=== PATIENT | male | born 1990 | race Caucasian/White ===

== ENCOUNTER 2023-01-30 18:19 | Emergency (ER) | payer OTHER, SELFPAY ==
--- NOTE | ~2023-01-30 | CT_ITS ---
EXAM: CT scan of the head and cervical spine. INDICATION: Reason for Exam pain s/p fall TECHNIQUE: A noncontrast CT scan was performed from the skull base to the vertex. A noncontrast CT scan of the cervical spine was performed from the base of the skull through T1 at 2.5 mm and 1.25 mm collimation. Coronal and sagittal reformats were obtained at the acquisition workstation. This CT examination was performed using dose optimization techniques as appropriate, variously including the following: *Automated exposure control *Adjustment of mA and/or kV according to patient size (this includes techniques or standardized protocols for targeted exams where dose is matched to indication/reason for exam; i.e. extremities or head) *Use of iterative reconstruction technique DLP: 1141 mGy-cm COMPARISON: None FINDINGS: Head: There is no evidence of acute intracranial hemorrhage or territorial infarction. Parker-white matter differentiation is preserved. No abnormal mass effect or midline shift. No extra-axial fluid collections. No abnormal attenuation is demonstrated within the brain parenchyma. Scattered periventricular and deep white matter hypodensities consistent with microangiopathy. The ventricles and sulcal spaces are proportional without hydrocephalus. Proportional prominence of the ventricles and sulcal spaces. No acute osseous or soft tissue abnormalities. The mastoid air cells and visualized portions of the paranasal sinuses are well aerated. Cervical Spine: The atlantooccipital and atlantoaxial articulations remain well aligned. Straightening of the normal cervical lordosis. Otherwise, there is anatomic alignment of the vertebral bodies and posterior elements. No evidence of acute fracture or subluxation. Minor spurring and early degenerative disc space narrowing C6-C7. Minimal spurring C6-C7.. There is no prevertebral soft tissue swelling. The thyroid gland and remaining cervical soft tissues are normal in appearance. The lung apices demonstrate no abnormalities. CT/CT cervical spine wo IV con IMPRESSION: No acute intracranial pathology. No fracture subluxation cervical spine.
[2023-01-30 18:47] VITALS: BP 132/90; PULSE 89; RESP 16; TEMP 36.8; O2SAT 99; BMI 26.6
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
[2023-01-30 19:47] VITALS: BP 107/60; PULSE 124; RESP 16; TEMP 36.8; O2SAT 98
[2023-01-30 23:58] VITALS: BP 97/54; PULSE 105; RESP 15; O2SAT 95
== END 2023-01-31 00:46 | disposition home or self-care (01) ==
PROVIDERS: Emergency Provider Internal Medicine
DX: S01.91XA Laceration without foreign body of unspecified part of head, initial encounter (principal); S01.311A Laceration without foreign body of right ear, initial encounter; R51.9 Headache, unspecified; M54.2 Cervicalgia; Y28.9XXA Contact with unspecified sharp object, undetermined intent, initial encounter; Y93.9 Activity, unspecified; Y92.9 Unspecified place or not applicable; Y99.9 Unspecified external cause status
CPT/HCPCS: 12001; 12011; 70450; 72125; 99284

== ENCOUNTER 2023-02-17 23:49 | Emergency (ER) | payer OTHER, SELFPAY ==
--- NOTE | ~2023-02-17 | CT_ITS ---
EXAMINATION: CT HEAD WITHOUT CONTRAST CLINICAL INFORMATION: Altered mental status COMPARISON: 01/30/2023 TECHNIQUE: Contiguous axial imaging was performed from the skull base to vertex without intravenous administration of contrast. This CT examination was performed using dose optimization techniques as appropriate, variously including the following: *Automated exposure control *Adjustment of mA and/or kV according to patient size (this includes techniques or standardized protocols for targeted exams where dose is matched to indication/reason for exam; i.e. extremities or head) *Use of iterative reconstruction technique DLP: 685 mGy-cm FINDINGS: There is no evidence of acute intracranial hemorrhage or territorial infarction. No abnormal mass effect or midline shift is seen. Parker to white matter differentiation is well preserved. No extra-axial fluid collections are identified. No hydrocephalus. No significant volume loss. There is no abnormal attenuation within the brain parenchyma. No acute osseous or soft tissue abnormality. The mastoid air cells and visualized portions of the paranasal sinuses are well aerated. CT/CT head/brain wo IV con IMPRESSION: No acute intracranial pathology.
[2023-02-17 23:54] VITALS: BP 115/49; BP 137/78; PULSE 110; PULSE 112; RESP 20; O2SAT 94; O2SAT 96; BMI 20.8
[2023-02-18] VITALS (19 sets, daily range): BP systolic 88–122; BP diastolic 42–80; PULSE 76–96; RESP 14–22; TEMP 36.1–36.6; O2SAT 90–100
--- NOTE | 2023-02-18 | ECG_ITS ---
Test Reason : repeat Blood Pressure : / mmHG Vent. Rate : 081 BPM Atrial Rate : 081 BPM P-R Int : 144 ms QRS Dur : 100 ms QT Int : 378 ms P-R-T Axes : 073 084 029 degrees QTc Int : 439 ms Normal sinus rhythm Normal ECG When compared with ECG of 18-FEB-2023 00:25, T wave inversion no longer evident in Inferior leads Referred By: Ewa Leblanc Electronically Signed By:Jamil Clark
--- NOTE | 2023-02-18 | ECG_ITS ---
Test Reason : OD Blood Pressure : / mmHG Vent. Rate : 105 BPM Atrial Rate : 105 BPM P-R Int : 132 ms QRS Dur : 088 ms QT Int : 334 ms P-R-T Axes : 064 071 -06 degrees QTc Int : 441 ms Sinus tachycardia T wave abnormality, consider inferior ischemia Abnormal ECG No previous ECGs available Referred By: Ewa Leblanc Electronically Signed By:Jamil Clark
--- NOTE | 2023-02-18 00:02 | PC.NURSE ---
Security at bedside for changeover. Belongings secured in decon.
[2023-02-18 00:40] LABS: MANUAL DIFF FLAG NO
[2023-02-18 00:41] LABS: Basophils Absolute Auto 0.1 X10*3/uL (0.0-0.2); Basophils Percent Auto 0.6 % (0-2); Eosinophils Absolute Auto 0.4 X10*3/uL (0.0-0.4); Eosinophils Percent Auto 3.6 % (0-4); Hematocrit 49.7 % (42.0-52.0); Hemoglobin 17.2 g/dl (14.0-18.0); Imm Gran Abs Auto 0.04 X10*3/uL (0.00-0.03); Imm Gran Pct Auto 0.4 % (0.0-0.4); Lymphocytes Percent Auto 31.2 % (20-40); Mean Corpuscular HGB Conc 34.6 g/dl (31.0-36.0); Mean Corpuscular Hemoglobin 35.1 pg (27.0-33.0); Mean Corpuscular Volume 101.4 fL (80.0-98.0); Mean Platelet Volume 11.8 fL (9.4-12.4); Monocytes Absolute Auto 0.6 X10*3/uL (0.1-1.2); Monocytes Percent Auto 6.5 % (2-11); Neutrophils Absolute Auto 5.6 x10*3/uL (2.0-8.3); Neutrophils Percent Auto 57.7 % (45-73); Platelet Count 258 X10*3/uL (160-400); White Blood Count 9.7 X10*3/uL (4.8-10.8)
--- NOTE | 2023-02-18 00:56 | ED.GENADULT ---
HPI - General Adult General Chief complaint: ETOH/Substance Use Stated complaint: OVERDOSE Time Seen by Provider: 02/17/23 23:55 Source: patient, EMS and motor vehicle parts interpreter Mode of arrival: EMS History of Present Illness HPI narrative: EMS states that patient was found outside of [place], unresponsive, breathing at 4-6 times a minute. EMS administered 4 mg of nasal Narcan and states that patient immediately came to. Patient adamantly denies any use of drugs and states that he has had approximately 6-7 nips today and is typically located outside of [place] due to his status of being homeless. Patient states that he dozed off and then the next thing he knew he woke up and there were a bunch of people around him. Patient wants to know how he is going to get back to [place]. He denies any acute complaints at this time. Related Data Allergies Allergy/AdvReac Type Severity Reaction Status Date / Time No Known Allergies Allergy Verified 02/17/23 23:58 Review of Systems Review of Systems: Pertinent positives and negatives as stated in HPI PMFSH Past Medical History Source: nursing notes reviewed Social History Social History Alcohol intake: current Alcohol intake frequency: 3 or more drinks per day Alcohol type: hard liquor Smoked in Last 30 Days: No Use of substances other than those prescribed or required for medical reasons: No Advance Directives: No Advance Directives Information Provided: Yes Physical Exam ED Vital Signs: Vital Signs - 24 hr 02/17/23 23:54 02/18/23 00:03 02/18/23 01:17 Temperature 97.8 F Pulse Rate 112 H 88 Respiratory Rate 20 16 Blood Pressure 115/49 L 111/77 Pulse Oximetry 96 90 L Oxygen Delivery Method Room Air Room Air Oxygen Flow Rate 02/18/23 01:18 Temperature Pulse Rate Respiratory Rate Blood Pressure Pulse Oximetry 97 Oxygen Delivery Method Nasal Cannula Oxygen Flow Rate 2 BMI result Body Mass Index 20.8 VITAL SIGNS: Reviewed. GENERAL: Well developed, well nourished, in no acute distress, smells of alcohol. HEAD: Normocephalic/atraumatic EYES: PERRLA, EOMI LUNGS: Normal breath sounds. No adventitious sounds or accessory muscle use. SpO2<96> CARDIOVASCULAR: Regular rate and rhythm without noted murmurs, ABDOMEN: Soft, non-tender, non-distended with bowel sounds. MUSCULOSKELETAL: No tenderness, deformities, or effusions noted on gross inspection; NO RIGHT LOWER EXTREMITY AT BASELINE. EXTREMITIES: No cyanosis, clubbing or edema. SKIN: Inspection of the skin reveals no rashes NEUROLOGIC: Alert and oriented x 3. Strength and sensation to light touch were grossly intact x 4. Medications Administered Discontinued Medications Generic Name Dose Route Start Last Admin Trade Name Freq PRN Reason Stop Dose Admin Naloxone HCl 4 mg 02/18/23 01:14 02/18/23 01:16 Naloxone Hcl Nasal 4 Mg [place] NOSTRILALT 02/18/23 01:15 4 mg ONCE ONE Administration Naloxone HCl 4 mg 02/18/23 02:37 02/18/23 02:41 Naloxone Hcl Nasal 4 Mg [place] NOSTRILALT 02/18/23 02:38 4 mg ONCE ONE Administration Medical Decision Making Medical Decision Making [facility] Narrative: This is a 32-year-old male with history and clinical presentation likely consistent with being intoxicated and dozing off and then someone thought that he had overdosed and called EMS who then promptly administered Narcan and then brought the patient in. I reviewed all investigation my initial interpretation was this patient has alcohol intoxication, however he continues to be pretty drowsy and difficult to arouse although spontaneously breathing at a good rate and we have administered an additional total of 8 mg of Narcan with improvement. I did order a repeat CT scan although no focal deficits identified patient did have a head injury on 02/05. That head CT scan does not show any acute abnormalities. Will follow-up on UDS, patient will remain in observation until he becomes more sober. Patient placed in physician observation because the patient needed more time to become sober. At the time observation was started the patient's vital signs were stable, patient is drowsy but arousable and oriented, neuro: Nonfocal, CV RRR, lungs clear Differential Diagnosis Please see the discussion above Lab Data Please see the discussion above 02/18/23 00:35 02/18/23 00:35 Labs: Lab Results 02/18/23 02/18/23 Range/Units 00:35 00:35 WBC 9.7 (4.8-10.8) X10*3/uL RBC 4.90 (4.60-5.80) X10*6/uL Hgb 17.2 (14.0-18.0) g/dl Hct 49.7 (42.0-52.0) % MCV 101.4 H (80.0-98.0) fL MCH 35.1 H (27.0-33.0) pg MCHC 34.6 (31.0-36.0) g/dl RDW 12.0 (11.0-16.0) % Plt Count 258 (160-400) X10*3/uL MPV 11.8 (9.4-12.4) fL Immature Gran % (Auto) 0.4 (0.0-0.4) % Neut % (Auto) 57.7 (45-73) % Lymph % (Auto) 31.2 (20-40) % [place] % (Auto) 6.5 (2-11) % Eos % (Auto) 3.6 (0-4) % Baso % (Auto) 0.6 (0-2) % Lymph # (Auto) 3.0 (1.2-4.9) X10*3/uL [place] # (Auto) 0.6 (0.1-1.2) X10*3/uL Eos # (Auto) 0.4 (0.0-0.4) X10*3/uL Baso # (Auto) 0.1 (0.0-0.2) X10*3/uL Abs Immat Gran (auto) 0.04 H (0.00-0.03) X10*3/uL Absolute Neuts (auto) 5.6 (2.0-8.3) x10*3/uL Absolute Nucleated RBC 0.000 (0.0-0.012) X10*3/uL Nucleated RBC % (auto) 0.0 (0.0-0.2) /100WBC Sodium 147 H (135-145) mmol/L Potassium 4.0 (3.3-5.1) mmol/L Chloride 111 H (96-108) mmol/L Carbon Dioxide 23 (22-29) mmol/L Anion Gap 17 (12-20) BUN 15 (9-16) mg/dL Creatinine 0.83 (0.5-1.4) mg/dL Estim Creat Clear Calc 111.1 Estimated GFR > 60 Random Glucose 102 (60-115) mg/dL Calcium 9.0 (8.4-10.2) mg/dL Total Bilirubin 0.2 (0.0-1.0) mg/dL AST 22 (5-37) U/L ALT 22 (0-40) U/L Alkaline Phosphatase 102 (39-117) U/L Total Protein 6.8 (6.5-8.0) g/dL Albumin 4.4 (3.5-5.0) g/dL Ethyl Alcohol 286 mg/dL Independent Interpretation I performed an independent interpretation of an: EKG Interpretation: Sinus tachycardia, HR -105, no STEMI, T-wave abnormality, [place]/QRS/QTC is within normal limits. Radiology Impression Radiologist Impression: My interpretation is in agreement with radiology's impression of the imaging studies. Discharge Plan Discharge Clinical Impression: Alcoholic intoxication Patient Disposition: Still a Patient
[2023-02-18 00:58] LABS: Alanine Aminotransferase 22 U/L (0-40); Albumin Level 4.4 g/dL (3.5-5.0); Alkaline Phosphatase 102 U/L (39-117); Anion Gap 17 (12-20); Aspartate Amino Transferase 22 U/L (5-37); Bilirubin Total 0.2 mg/dL (0.0-1.0); Blood Urea Nitrogen 15 mg/dL (9-16); Carbon Dioxide 23 mmol/L (22-29); Chloride 111 mmol/L (96-108); Creatinine Clr Calc Pharmacy 111.1; Estimated Glomerular Filt Rate > 60; Ethanol 286 mg/dL; Glucose Random 102 mg/dL (60-115); Sodium 147 mmol/L (135-145); Total Protein 6.8 g/dL (6.5-8.0)
--- NOTE | 2023-02-18 01:10 | PC.NURSE ---
Pt noted to desat to 90-92%. This RN at bedside, pt unresponsive with shallow respirations. Pt medicated with 4 mg of nasal narcan with minimal effect. MD Leblanc and primary RN Kellee notified. Pt moved into room 22 for close monitoring. VSS, O2 applied. Plan for CT scan.
[2023-02-18] MEDS: Naloxone HCl Nasal 4 MG SPRAY NOSTRILALT ×2 (01:16→02:41)
[2023-02-18] MEDS: 0.9 % Sodium Chloride 1,000 ML 999 ML IV ×2 (03:08→03:31)
[2023-02-18 03:31] LABS: Magnesium 2.4 mg/dL (1.6-2.6)
[2023-02-18 05:23] LABS: Amphetamine Screen Urine Not Detected (Not Detect); Barbiturates, Urine Not Detected (Not Detect); Benzodiazepines Screen Urine Not Detected (Not Detect); Cannabinoid Screen Urine Not Detected (Not Detect); Cocaine Screen Urine Not Detected (Not Detect); Fentanyl, urine Not Detected (Not Detect); Opiate Screen Urine Not Detected (Not Detect); Phencyclidine Screen Urine Not Detected (Not Detect)
--- NOTE | 2023-02-18 08:23 | PC.NURSE ---
Pt asleep but easily arousable to voice. Denies pain. BP soft. Skin warm, dry. NSR on tele. ETC02 44. Breathing unlabored. Speech clear. Awaits dispo
--- NOTE | 2023-02-18 11:41 | MHC.RECOVRN ---
Addendum entered by Nguyen Mcconnell RN 02/18/23 12:35: This video game script writer met w/ patient, patient was awake to verbal command, laying in bed. Patient reports drinks ETOH daily 5-7 nips per day. Patient reports no other substances used. Patient states was staying at [facility], left the detention and has been homeless sleeping outside in [place]. Patient states [employer] FREN[employer], drank ETOH and felt tired and went to sleep. Patient reports no history of treatment, no recovery supports. T/W offered detox, patient declined detox. Harm reduction strategies reviewed, recovery supports reviewed, [facility], list of detoxes. Patient verbalized understanding. Resources left at bedside for patient to follow up from the community. Original Note: This video game script writer attempted to meet w/ patient, malariologist services unavailable x's 2, patient requesting malariologist for LINDA eval. T/W to attempt again.
--- NOTE | 2023-02-18 13:50 | PC.NURSE ---
Pt alerrt/awake prior to d/c. Drinking PO fluids. speech clear. Appropriate. Logan/steady using crutches to decon room
== END 2023-02-18 13:52 | disposition home or self-care (01) ==
PROVIDERS: Emergency Provider Student in an Organized Health Care Education/Training Program
DX: T51.0X1A Toxic effect of ethanol, accidental (unintentional), initial encounter (principal); R51.9 Headache, unspecified; R00.0 Tachycardia, unspecified; Y92.9 Unspecified place or not applicable; F10.129 Alcohol abuse with intoxication, unspecified; Y90.8 Blood alcohol level of 240 mg/100 ml or more; Z79.899 Other long term (current) drug therapy; Z71.41 Alcohol abuse counseling and surveillance of alcoholic
CPT/HCPCS: 36415; 51702; 70450; 80053; 80307; 82077; 83735; 85025; 93005; 96360; 99285

== ENCOUNTER 2023-12-19 10:00 | Emergency (ER) | payer OTHER, SELFPAY ==
[2023-12-19 10:47] VITALS: BP 127/79; PULSE 83; RESP 16; TEMP 36.4; O2SAT 98; BMI 23.2
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
--- OUTSIDE RECORDS SUMMARY | 2023-12-19 13:35 | XMS_ITS | Continuity of Care Document ---
Author Name Unknown Organization [facility] Address [address] [place] [address]- Care Team Providers Care Software Tools Engineer Name Role Phone Not on Staff, PCP Primary Care Physician Unavail able Encounter [facility] Date(s): 06/29/23 - 08/05/23 [facility] Adult [address] [place] [address]- Attending Physician: Bridgette ZEPEDA, Melina Renteria Referring Physician: Danielle GUADALUPE, Jb Geiger Immunizations Given and Recorded Vaccine Date Status Refusal Reason tetanus/diphtheria/pertussis, acel(Tdap) 08/07/22 Recorded Patient Care team information Care Team Personnel Name: Not on Staff, PCP Position: S Physician (General Medicine) Member Role: PCP Care Team Related Persons Name: JARED CARBAJAL Address: home [address] [place] [address]
--- OUTSIDE RECORDS SUMMARY | 2023-12-19 13:35 | XMS_ITS | Continuity of Care Document ---
Author Name Unknown Organization [facility] Address [address] [place] [address]- Care Team Providers Care Playground Equipment Erector Name Role Phone Not on Staff, PCP Primary Care Physician Unavail able Encounter [facility] Date(s): 06/04/23 - 07/29/23 [facility] Adult [address] [place] [address]- Attending Physician: Danielle GUADALUPE, Jb Geiger Referring Physician: Bridgette AIRCRAFT AIR CONDITIONING MECHANIC, Melina Renteria Immunizations Given and Recorded Vaccine Date Status Refusal Reason tetanus/diphtheria/pertussis, acel(Tdap) 08/07/22 Recorded Patient Care team information Care Team Personnel Name: Not on Staff, PCP Position: S Physician (General Medicine) Member Role: PCP Care Team Related Persons Name: JARED CARBAJAL Address: home [address] [place] [address]
--- OUTSIDE RECORDS SUMMARY | 2023-12-19 13:35 | XMS_ITS | Continuity of Care Document ---
Author Name Unknown Organization [facility] Address [address] [place] [address]- Care Team Providers Care Service Coordinator Elderly Facility Name Role Phone Not on Staff, PCP Primary Care Physician Unavail able Encounter [facility] Date[facility]s): 07/06/23 - 08/05/23 [facility] Adult [address] [place] [address]- Attending Physician: Blanca Mondragon Admitting Physician: Admtr, Ar8 Referring Physician: Admtr, Ar8 Immunizations Given and Recorded Vaccine Date Status Refusal Reason tetanus/diphtheria/pertussis, acel(Tdap) 08/07/22 Recorded Patient Care team information Care Team Personnel Name: Not on Staff, PCP Position: S Physician (General Medicine) Member Role: PCP Care Team Related Persons Name: JARED CARBAJAL Address: home [address] [place] [address]
--- OUTSIDE RECORDS SUMMARY | 2023-12-19 13:35 | XMS_ITS | Continuity of Care Document ---
Author Name Unknown Organization [facility] Address [address] [place] [address]- Care Team Providers Care Hot End Operator Name Role Phone Not on Staff, PCP Primary Care Physician Unavail able Encounter [facility] Date(s): 06/04/23 - 07/04/23 [facility] Adult [address] [place] [address]- Patient Care team information Care Team Personnel Name: Not on Staff, PCP Position: S Physician (General Medicine) Member Role: PCP Care Team Related Persons Name: JARED CARBAJAL Address: home [address] [place] [address]
== END 2023-12-19 13:56 | disposition home or self-care (01) ==
PROVIDERS: Emergency Provider Emergency Medicine
DX: S46.911A Strain of unspecified muscle, fascia and tendon at shoulder and upper arm level, right arm, initial encounter (principal); S16.1XXA Strain of muscle, fascia and tendon at neck level, initial encounter; S39.012A Strain of muscle, fascia and tendon of lower back, initial encounter; Y99.9 Unspecified external cause status; V43.62XA Car passenger injured in collision with other type car in traffic accident, initial encounter; Y93.89 Activity, other specified; Y92.414 Local residential or business street as the place of occurrence of the external cause
CPT/HCPCS: 99283

== ENCOUNTER 2024-03-06 07:50 | Emergency (ER) | payer OTHER, SELFPAY ==
[2024-03-06 08:10] VITALS: BP 130/88; PULSE 86; RESP 18; O2SAT 98; BMI 29.1
--- NOTE | 2024-03-06 09:00 | ED.EAR ---
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 Related Data Previous Rx's ?Medication ?Instructions ?Recorded acetaminophen 500 mg tablet 1,000 mg (2 x 500 mg) PO TID PRN 12/19/23 pain #30 tabs cyclobenzaprine 5 mg tablet 5 mg PO TID PRN muscle spasm #14 12/19/23 tabs ibuprofen 600 mg tablet 600 mg PO Q6H PRN pain #20 tabs 12/19/23 Allergies Allergy/AdvReac Type Severity Reaction Status Date / Time No Known Allergies Allergy Verified 03/06/24 08:11 Review of Systems Review of Systems: All other systems are reviewed and are negative Constitutional: Reports as per HPI and Reports no additional constitutional complaints Eyes: Reports as per HPI and Reports no additional eye complaints Reports system reviewed and no additional complaints, except as documented Cardiovascular: Reports as per HPI and Reports no additional cardiovascular complaints Respiratory: Reports as per HPI and Reports no additional respiratory complaints Gastrointestinal: Reports as per HPI and Reports no additional gastrointestinal complaints Genitourinary: Reports no additional female genitourinary complaints Musculoskeletal: Reports no additional musculoskeletal complaints Skin/Breast: Reports system reviewed and no additional complaints, except as docu Psychiatric: Reports no additional psychiatric complaints Endocrine: Reports no additional endocrine complaints Hematologic/Lymphatic: Reports no additional hematologic/lymphatic complaints Allergic/Immunologic: Reports no additional allergic/immunologic complaints Reports system reviewed and no additional complaints, except as documented and Reports Abnormal speech present PENDING S[facility] TO [facility] Social History Social History Alcohol intake: current Alcohol intake frequency: 3 or more drinks per day Alcohol type: hard liquor Advance Directives: No Do you have a plan to hurt others: No Plan Physical Exam Vital Signs: Vital Signs: Last Vital Signs Pulse 86 03/06/24 08:10 Resp 18 03/06/24 08:10 BP 130/88 03/06/24 08:10 Pulse Ox 98 03/06/24 08:10 O2 Del Method Room Air 03/06/24 08:10 BMI result Body Mass Index 29.1 Vital signs have been reviewed and appear to be correct. Blood pressure elevated. Heart rate normal. Respiratory rate normal. Temperature normal. Oxygen saturation normal. Appearance: Alert. Oriented X3. No acute distress. Head: Normal external exam. Normocephalic. Atraumatic. No Werner signs noted. No raccoon eyes noted Eyes: PERRLA. EOMI. Conjunctiva and sclera normal. Eyelids normal. ENT: 3 x 4 cm cystic lesion at 12:00 o'clock of the external auricle of the left ear that is obviously fluctuance, no redness or hotness on the skin above it. Neck: Normal inspection. Neck supple. FROM. No adenopathy. Thyroid Normal. No meningeal signs. No neck mass noted. CVS: Normal heart rate and rhythm. Heart sound normal. No murmurs noted. Pulses normal throughout. Respiratory: No respiratory distress. Painless inspiration. Breath sounds normal. No wheezes/rales/rhonchi noted. Chest nontender. No accessory muscle usage noted or decreased air movement noted. Abdomen: Soft and nontender. Bowel sounds normal in all 4 quadrants. No distention noted. No organomegaly noted. No visible injury noted. Back: No CVA tenderness. Full range of motion noted. Skin: Skin warm and dry. Normal skin color. Normal skin turgor. No rashes/lesions/lacerations noted. Extremities: No lower extremity edema. Extremities exhibit normal range of motion. Extremities nontender. Neuro: Oriented X 3. Cranial nerve exam: II-XII are grossly intact No motor deficit. No sensory deficit. Reflexes normal. Course Reevaluation(s) Reevaluation #1: S/p left cystic lesion on the left auricle that has been aspirated in the ED now it is disappeared. No further action is required. Time: 09:06 Procedures Abscess I/D Site: other (At 12:00 o'clock of the left auricle) Side (if applicable): left Technique: needle aspiration (Yellow fluids) Amount of fluid expressed (mL): 5 Sent for culture/gram staining?: No Irrigation: No Packing used?: none Discharge Plan Discharge Clinical Impression: Auricular cyst Patient Disposition: Home, Self-Care Instructions: Cyst (ED) Prescriptions: No Action cyclobenzaprine 5 mg tablet 5 mg PO TID PRN (Reason: muscle spasm) Qty: 14 0RF acetaminophen 500 mg tablet 1,000 mg PO TID PRN (Reason: pain) Qty: 30 0RF ibuprofen 600 mg tablet 600 mg PO Q6H PRN (Reason: pain) Qty: 20 0RF Print Language: Vietnamese
[2024-03-06 10:20] VITALS: BP 125/68; PULSE 82; RESP 20; TEMP 37.2; O2SAT 100
== END 2024-03-06 10:21 | disposition home or self-care (01) ==
PROVIDERS: Emergency Provider Emergency Medicine
DX: H60.02 Abscess of left external ear (principal)
CPT/HCPCS: 69000; 99283; 99284

== ENCOUNTER 2024-03-12 09:07 | Emergency (ER) | payer OTHER, SELFPAY ==
[2024-03-12 09:25] VITALS: BP 129/87; PULSE 89; RESP 17; TEMP 36.3; O2SAT 97; BMI 27.6
--- NOTE | 2024-03-12 10:00 | ED_ITS ---
HPI - Ear Problem General Chief complaint: Ear Problems Stated complaint: Ear issues Time Seen by Provider: 03/12/24 09:37 Source: patient Mode of arrival: ambulatory Limitations: no limitations History of Present Illness HPI Narrative: 33-year-old male hx of auricular cyst came in for evaluation of left ear cyst for the past 2-3 months had it drained a few days ago yellow fluid expresseed now it cam back. He reports it is itchy, patient declined trauma to the left ear, no fever, no chills, no hearing problem, it is only affecting the outside of the left ear. No hearing changes. Related Data Previous Rx's ?Medication ?Instructions ?Recorded acetaminophen 500 mg tablet 1,000 mg (2 x 500 mg) PO TID PRN 12/19/23 pain #30 tabs cyclobenzaprine 5 mg tablet 5 mg PO TID PRN muscle spasm #14 12/19/23 tabs ibuprofen 600 mg tablet 600 mg PO Q6H PRN pain #20 tabs 12/19/23 Allergies Allergy/AdvReac Type Severity Reaction Status Date / Time No Known Allergies Allergy Verified 03/12/24 09:27 Review of Systems Review of Systems: Yes all other systems are reviewed and are negative [facility] Past Medical History Attestation statement: The following information was validated with the patient. Source: old records reviewed and nursing notes reviewed Social History Social History Alcohol intake: current Alcohol intake frequency: 3 or more drinks per day Alcohol type: hard liquor Advance Directives: No Advance Directives Information Provided: No Do you have a plan to hurt others: No Plan Physical Exam Vital Signs: Vital Signs: Last Vital Signs Temp 97.3 F 03/12/24 09:25 Pulse 89 03/12/24 09:25 Resp 17 03/12/24 09:25 BP 129/87 03/12/24 09:25 Pulse Ox 97 03/12/24 09:25 O2 Del Method Room Air 03/12/24 09:25 BMI result Body Mass Index 27.6 vss Appearance: Alert.? Oriented X3.? No acute distress.? Head: Normocephalic, atraumatic, no step-offs or deformities Eyes: Pupils equal, round and reactive to light.? Ears: + left sided superior auricular cyst, no signs of necrosis, or hematoma. soft not tense, normal ear color. Normal TM, EC and mastoids b/l. CVS: Normal heart rate and rhythm.? Pulses normal.? Respiratory: No respiratory distress.? Breath sounds normal.? Abdomen: Soft and nontender.? Skin: Skin warm and dry.? Normal skin color.? Normal skin turgor.? Extremities: No lower extremity edema.? No calf ttp. 5/5 strength to bilateral upper and lower extremities Neuro: Oriented X 3.? No motor deficit.? No sensory deficit. CN 2-12 intact Medical Decision Making Medical Decision Making MDM Narrative: 1003' 33 year old male presents for recurrent cyst to L ear X 2-3 months PE- left sided superior auricular cyst, no signs of necrosis, or hematoma. soft not tense, normal ear color. Normal TM, EC and mastoids b/l. This is likely an irregular cyst unlikely auricular hematoma, no associated trauma. No signs of necrosis, no signs of decreased blood supply to the ear, area is not tense it is soft, fluctuant. No overlying skin changes no signs of cellulitis. I did have my attending Dr. Nick evaluate this patient who agrees this is likely a cyst it does not need an incision and drainage or fine-needle aspiration. He advises follow-up with ENT. No indication for antibiotic Educated patient on diagnosis and treatment plan, answered all question, patient verbalizes understanding. At this time patient will be discharged home, advised to return with new or worsening symptoms. Educated on worrisome signs and symptoms and when to return. At this time I feel comfortable discharge home. Differential Diagnosis Differential Diagnoses: The differential diagnosis associated with the presentation includes This is likely an irregular cyst unlikely auricular hematoma, no associated trauma. No signs of necrosis, no signs of decreased blood supply to the ear, area is not tense it is soft, fluctuant. No overlying skin changes no signs of cellulitis. 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 If you were prescribed antibiotics today, it is important that you take your medication to their entirety, do not skip any doses, do not finish them early. Follow-up with your primary care provider this week. Return to the emergency department with new or worsening symptoms. Such as fevers, chills, chest pain, shortness of breath, nausea, vomiting, dizziness, headache, vision changes, lethargy In case of emergency call 911 Please follow-up with ear nose and throat call today to schedule an appointment Prescriptions: No Action cyclobenzaprine 5 mg tablet 5 mg PO TID PRN (Reason: muscle spasm) Qty: 14 0RF acetaminophen 500 mg tablet 1,000 mg PO TID PRN (Reason: pain) Qty: 30 0RF ibuprofen 600 mg tablet 600 mg PO Q6H PRN (Reason: pain) Qty: 20 0RF Referrals: Raza Jimenez [Physician] - 1 day Physician,None [Primary Care Provider] - 2 days Stand Alone Forms: Work/School Release Print Language: Ukrainian
[2024-03-12 10:14] VITALS: BP 126/86; PULSE 81; RESP 16; TEMP 36.6; O2SAT 97
== END 2024-03-12 10:15 | disposition home or self-care (01) ==
PROVIDERS: Emergency Provider Emergency Medicine
DX: Q18.1 Preauricular sinus and cyst (principal)
CPT/HCPCS: 99282; 99283